=== PATIENT | male | born 1960 | race Caucasian/White ===

== ENCOUNTER 2019-04-13 00:58 | Inpatient (IN) | payer MEDICAID, SELFPAY ==
[2019-04-13] VITALS (24 sets, daily range): BP systolic 101–147; BP diastolic 53–89; PULSE 79–182; RESP 16–24; TEMP 36.7–37.3; O2SAT 96–98; BMI 35.7; BMI 33.8; BMI 33.9
--- NOTE | 2019-04-13 01:18 | RAD_ITS ---
STUDY: X-RAY CHEST REASON FOR EXAM: Male, 58 years old. Chest pain TECHNIQUE: AP portable COMPARISON: None. FINDINGS: The lungs are clear and expanded. There is no demonstrated pleural abnormality. Normal size heart. Normal mediastinum and daina. Normal visualized pulmonary arteries. Normal visualized aortic arch and descending thoracic aorta. Normal visualized thoracic spine. Normal visualized ribs, clavicles, and shoulders. There is no demonstrated abnormality of the visualized soft tissue structures of the upper abdomen. RAD/Chest 1 View (Portable) IMPRESSION: Negative x-ray examination of the chest. Electronically Signed: Tai Moody, at 1:48 EDT Tel , Service support ,
--- NOTE | 2019-04-13 01:18 | EKG12_ITS ---
Test Reason : SYNCOPE Blood Pressure : / mmHG Vent. Rate : 110 BPM Atrial Rate : 108 BPM P-R Int : 000 ms QRS Dur : 102 ms QT Int : 334 ms P-R-T Axes : 000 034 050 degrees QTc Int : 452 ms Atrial fibrillation with rapid ventricular response Abnormal ECG Confirmed by MILO LIANG, LASHAUN ([id number]), city editor RON FRANCO ([id number]) on 04/15/2019 1:08:15 PM Referred By: Eyad Warner Confirmed By:LASHAUN PEDRAZA MD
--- NOTE | 2019-04-13 01:18 | ED.VIS.CHEST ---
History of Present Illness Chief Complaint: Syncope Informant: Patient, Spouse/S.O. Onset: Today Activity at onset: Light Activity - walking in camper Narrative: Patient had 3 episodes today, 2 of which were witnessed by his significant other as full syncopal episodes of a relatively brief, started after getting up and walking in the camper. Patient felt lightheaded prior to each 1. The first one sounded like a near syncopal episode. Patient states he went down to his knees because he felt lightheaded. No injuries. He had chest discomfort for 20 minutes in the left side of his chest, aching, earlier today, took a nitroglycerin and states it did not do anything, but the discomfort spontaneously resolved little later. He has a history of chronic A. fib, he had an ablation and then a Holter monitor for 1-2 days around 2 months ago that was negative, he has never felt when he is in atrial fibrillation in the past, EMS EKG shows A. fib prior to arrival today in the ER. He states he is having no chest discomfort now. He had no exertional chest discomfort earlier, it started while he was at rest. He states for the last 2 to 3 days he has had a nonproductive cough, occasional shortness of breath, and diarrhea around 5 times a day, watery, nonbloody. He is on Eliquis and Plavix he has a history of cardiac stents. 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 - Past Medical History (1) CAD (coronary artery disease), [place] coronary artery Status: Chronic (2) HTN (hypertension) Status: Chronic (3) Hyperlipidemia Status: Chronic (4) Type 2 diabetes mellitus Status: Chronic (5) Ankylosing spondylitis Status: Chronic (6) Chronic atrial fibrillation Status: Chronic Past Medical History - Allergies and Home Meds Allergies/Adverse Reactions: Allergies No Known Allergies Allergy (Verified 04/13/19 01:08) Primary Care Physician: [facility] Doctor,Out of [Primary Care Provider] - Surgical History: angioplasty - coronary stent, - - cardiac ablation Lives: Spouse/ Significant Other Smoking Status: Never smoker Drugs: None Review of Systems General: Reports: Malaise. Denies: Chills, Fever, Sweats Eyes: Denies: Visual changes - bilaterally, Diplopia ENT: Denies: Rhinorrhea, Sore throat Cardiovascular: Denies: Chest pain, Palpitations, Heart racing Respiratory: Reports: Dyspnea, Cough. Denies: Dyspnea on exertion Gastrointestinal: Reports: Abdominal pain, Diarrhea. Denies: Nausea, Vomiting, Melena, Hematochezia Genitourinary: Denies: Dysuria, Hematuria, Frequency Musculoskeletal: Reports: Back pain - chronic, unchanged. Denies: Swelling, Extremity Pain Skin: Denies: Rash, Wounds Neurological: Denies: Headache, Weakness, Numbness Physical Exam Vital Signs/Narrative: Vital Signs Temp Pulse Resp BP Pulse Ox 04/13/19 01:07 138 H 22 H 98 04/13/19 01:01 99.1 F 106 H 19 H 119/67 96 Inital Vital Signs reviewed: Yes General: Well nourished, Well developed, No Acute Distress Head: Normocephalic, Atraumatic Eyes: Perrl, EOMI ENT: Moist mucous membranes, No rhinorrhea Neck: Supple, Nontender, No lymphadenopathy, No JVD Cardiovascular: No murmurs, Irregular, Tachycardia Respiratory: No distress, CTA bilaterally, Chest nontender Abdomen: Soft, Nontender, Nondistended, Normal bowel sounds Back: Nontender, Normal Inspection Extremities: Nontender, No edema. Negative for: Calf Tenderness Skin: Normal color, No rash, No Trauma Neurological: Alert, Oriented x3, Cranial nerves II-XII grossly intact, Normal Strength, Normal Sensation Psychological: Normal affect, Normal Mood Diagnostic/Tx/Re-eval Impressions Chest X-Ray 04/13/19 01:18 IMPRESSION: Negative x-ray examination of the chest. Electronically Signed: Tai Moody, at 1:48 EDT Tel , Service support , 04/13/19 01:18 Chest 1 View (Portable) [RAD] Stat Laboratory Results 04/13/19 04/13/19 01:10 01:10 WBC 8.4 RBC 5.73 Hgb 14.2 Hct 44.3 MCV 77.3 L MCH 24.8 L MCHC 32.1 RDW 17.0 H RDW Differential 47.6 H Plt Count 239 MPV 10.5 Immature Gran % (Auto) 0.200 Neut % (Auto) 69.5 Lymph % (Auto) 17.2 L [place] % (Auto) 12.4 H Eos % (Auto) 0.5 Baso % (Auto) 0.2 Absolute Neuts (auto) 5.8 Absolute Lymphs (auto) 1.44 Total Counted Not Reportable Sodium 135 L Potassium 3.3 L Chloride 106 Carbon Dioxide 21.0 Anion Gap 8 BUN 19 H Creatinine 1.02 Estim Creat Clear Calc 83.05 Est GFR (MDRD) Af Amer 96 Est GFR (MDRD) Non-Af 79 BUN/Creatinine Ratio 18.6 Glucose 160 H Calcium 8.6 Troponin I 0.349 H - Rhythm Strip Rhythm Strip: A-fib Rate: 120 Ectopy: PVC(s) - EKG Initial EKG Interpretation: No Acute Injury Pattern, Atrial Fibrillation Treatment: - - ASA held due to already took Plavix < 24h and anticoagulated Repeat Eval: Pain Free RUTHY Risk: >/= 3RF, H/O CAD, ASA within 7 days - (Plavix), Elevated Enzymes Score: 4 - Medical Decision Making Work-up shows an elevated troponin, prerenal azotemia consistent with mild dehydration, mild hypokalemia likely due to diarrhea/loss. On reevaluation after IV fluids and Cardizem, he is feeling better and still is without any chest discomfort at this time. He is without dyspnea now as well. His heart rate is in the low 100s. I did not give him much Cardizem due to his multiple syncopal events recently, and if he was significantly dehydrated I did not want to drop his blood pressure. With what we gave him, his blood pressure remained stable, 139/100 at last reading. As discussed with the patient I recommend admission to the hospital for further monitoring and testing with cardiac consult. His EKG shows no acute injury pattern, differential for his elevated troponin includes evolving or recent non-STEMI versus nonischemic rate related troponin leak. Lovenox/heparin held due to anticoagulation on Eliquis. Aspirin held due to anticoagulated as well, he had his Plavix. ED Disposition - Plan for ED Patient: Disposition: Acute Care Hospital [facility] Diagnosis: Chest pain, Elevated troponin, Dehydration, Syncope, Atrial fibrillation with rapid ventricular response Referrals: [facility] Doctor,Out of [Primary Care Provider] -
[2019-04-13] MEDS: 0.9% Normal Saline 1,000 ML 1000 ML IV (01:21)
--- NOTE | 2019-04-13 01:21 | ED.RN ---
NO OLD EKGS IN MUSE
[2019-04-13 01:26] LABS: Absolute Lymphocyte Count 1.44 X10^3/ul (0.83-4.51); Absolute Neutrophil Count 5.8 X10^3/uL (2.0-7.7); Basophil# 0.02 X10^3/uL; Basophil% 0.2 % (0-1); Eosinophil# 0.04 X10^3/uL; Eosinophils% 0.5 % (0-5); Hematocrit 44.3 % (40-54); Hemoglobin 14.2 g/dl (13.0-16.5); Lymphocyte # 1.44 X10^3/ul (4.0); Lymphocyte % 17.2 % (19-41); Mean Corp Hgb Conc 32.1 g/gl (32-36); Mean Corpuscular Hgb 24.8 pg (27.0-32.0); Mean Corpuscular Volume 77.3 fL (80-94); Mean Platelet Vol. 10.5 fl (6.2-12.0); Monocyte# 1.04 X10^3/uL; Monocyte% 12.4 % (0-10); Neutrophil # 5.82 X10^3/uL (2.7-7.7); Neutrophil % 69.5 % (47-70); Platelet Count 239 K/mm3 (150-450); RBC Distribution Width SD 47.6 fl (35.1-43.9); Red Blood Count 5.73 M/mm3 (4.6-6.2); White Blood Count 8.4 K/mm3 (4.4-11.0)
[2019-04-13] MEDS: dilTIAZem 25 MG/5 ML Vial 10 MG IV BOLUS (01:27)
[2019-04-13 01:30] LABS: POSITIVE COUNT NO; POSITIVE DIFFERENTIAL NO; POSITIVE MORPHOLOGY NO
[2019-04-13 01:39] LABS: Anion Gap 8 (5-15); BUN 19 mg/dL (7-18); BUN/Creat Ratio 18.6 RATIO (10-20); Calcium,Total 8.6 mg/dL (8.5-10.1); Chloride 106 mmol/L (98-107); Creatinine, Serum 1.02 mg/dL (0.70-1.30); EST Glomerular Filtration Rate 79 mL/min (>60); Est Glom Filt Rate - Afr Amer 96 mL/min (>60); Estimated Creatinine Clearance 83.05 ml/min; Glucose 160 mg/dL (74-106); Potassium 3.3 mmol/L (3.5-5.1); Sodium Level 135 mmol/L (136-145)
--- NOTE | 2019-04-13 02:53 | HP.PCM_ITS ---
Problem List (1) Atrial fibrillation with rapid ventricular response Status: Acute (2) Syncope and collapse Status: Acute (3) Elevated troponin Status: Acute (4) Ankylosing spondylitis Status: Chronic History of Present Illness Date of Admission: 04/13/19 Chief Complaint: syncope The patient is a 58 year old M with a significant history of ankylosing spondylitis; atrial fibrillation status post ablation; CAD with a stent; Type 2 diabetes who presented to the emergency department with 2 episodes of syncope and another episode where he had presyncope. All the episode happened while patient was walking in his home. During the syncopal episode he was shaking and staring. He knelt down with his syncopal episodes. His symptoms occurred few hours before presentation. Also, several hours before the syncopal and presyncopal episode he had a transient episode of left sided chest pain that lasted 2 to 3 minutes. His chest pain was aching. It occurred while he was sitting. His chest pain was non-radiating. There was no aggravating or ameliorating factor to the chest pain. Although patient took nitroglycerin he said that his chest pain was markedly improving before he even took the nitroglycerin. He thinks that the nitroglycerin did not help him and his only give me a headache. The last 3 days the patient has been lethargic; neurologic; nauseous; he has runny nose; cough; diarrhea with loose stools; diaphoresis and rigors. At the emergency department patient was noted to have elevated in troponin; low potassium; mildly low sodium and a slight elevation in BUN. Patient was given a bolus of normal saline at the ED. Further he was found to be in A. fib with ventricular rates around 110s and was given a bolus of Cardizem. In December 2017 patient had a first episode of A. fib and he passed out with it. Follow-up Holter monitor showed that he was in ventricular fibrillation and he received ablation. Follow-up Holter monitor after the ablation did not show A. fib but it showed extra beats. Much of the history was provided by patient's . Past Medical History Past Medical History (Chronic Problems): Chronic Problems CAD (coronary artery disease), [place] coronary artery (Chronic) HTN (hypertension) (Chronic) Hyperlipidemia (Chronic) Type 2 diabetes mellitus (Chronic) Ankylosing spondylitis (Chronic) Chronic atrial fibrillation (Chronic) Allergies No Known Allergies Allergy (Verified 04/13/19 01:08) Home Medications: Ambulatory Orders Medication Instructions Recorded Apixaban [Eliquis] 5 mg PO BID 04/13/19 Clopidogrel Bisulfate [Plavix] 75 mg PO DAILY 04/13/19 Ertugliflozin Pidolate [Steglatro] 5 mg PO DAILY 04/13/19 Etanercept [Enbrel] 50 mg SQ QWEEK 04/13/19 Gabapentin 800 mg PO BID 04/13/19 Glimepiride [Amaryl] 4 mg PO BID 04/13/19 Lisinopril [Prinivil] 10 mg PO DAILY 04/13/19 Magnesium Oxide 400 400 mg PO DAILY 04/13/19 Metoprolol Tartrate [Lopressor] 100 mg PO BID 04/13/19 Pantoprazole Sodium [Protonix] 40 mg PO DAILY 04/13/19 Pioglitazone [Actos] 45 mg PO DAILY 04/13/19 Simvastatin 20 mg PO DAILY 04/13/19 Sitagliptin Phosphate [Januvia] 50 mg PO DAILY 04/13/19 traZODone [Desyrel] 100 mg PO QHS 04/13/19 Surgical History: angioplasty - coronary stent, appendectomy, - - cardiac ablation Lives: Spouse/ Significant Other Smoking Status: Never smoker Alcohol: Occasional - *Family History Maternal History Items: Diabetes Paternal History Items: Cancer - His father had lung cancer. Patient reported his father worked in [employer] Review of Systems Constitutional: Reports: Chills. Denies: Fever, Weight Change HEENT: Denies: Head Aches, Sinus Congestion, Sinus Drainage Cardiovascular: Reports: Chest Pain, Syncope. Denies: Palpitations Respiratory: Reports: Cough, Shortness of Breath Gastrointestinal: Reports: Diarrhea, Nausea. Denies: Abdominal Pain, Vomiting Genitourinary: Denies: Dysuria Musculoskeletal: Denies: Joint Pain, Joint Tenderness Skin: Denies: Rash, Wounds Neurological: Denies: Numbness, Tingling, Focal weakness Psychiatric: Denies: Anxiety, Depression, Homicidal Ideations, Suicidal Ideations Hematologic/ Lymphatic: Denies: Easy Bruising, Easy Bleeding VTE Information - Inpt Only VTE Present on Admission: No VTE Mechan Device Prophylaxis: None VTE Pharm Prophylaxis ordered?: No Reason prophylaxis not ordered:: Treatment Not Indicated - On Eliquis for A. fib; continued Patient Problems: Active and Suspected Problems Chest pain (Acute) Elevated troponin (Acute) Dehydration (Acute) Syncope (Acute) Atrial fibrillation with rapid ventricular response (Acute) Syncope and collapse (Acute) - Physical Exam General: Alert, Oriented x3, Cooperative HEENT: Atraumatic, PERRLA, EOMI, Normocephalic Neck: Supple, No JVD, Negative Carotid Bruits Lungs: Clear to auscultation, Normal air movement Cardiovascular: No murmurs, Irregular Rate Abdomen: Bowel Sounds Present, Soft, Non Tender Extremities: No edema, Capillary Refill Less than 3 Seconds Skin: No rashes, No breakdown Musculoskeletal: No Tenderness to Palpation of Joints or Extremities Neurological: Cranial nerves II-XII grossly intact Psych/Mental Status: Normal Affect, Appropriate Vital Signs Temp Pulse Resp BP Pulse Ox 99.1 F 104 H 24 H 119/67 96 04/13/19 01:01 04/13/19 02:52 04/13/19 02:52 04/13/19 02:52 04/13/19 02:52 Oxygen Delivery Method Room Air Weight: 116.2 kg Body Mass Index (BMI) 35.7 Laboratory Tests Past 24 Hrs 04/13/19 04/13/19 01:10 01:10 WBC 8.4 RBC 5.73 Hgb 14.2 Hct 44.3 MCV 77.3 L MCH 24.8 L MCHC 32.1 RDW 17.0 H RDW Differential 47.6 H Plt Count 239 MPV 10.5 Immature Gran % (Auto) 0.200 Neut % (Auto) 69.5 Lymph % (Auto) 17.2 L [place] % (Auto) 12.4 H Eos % (Auto) 0.5 Baso % (Auto) 0.2 Absolute Neuts (auto) 5.8 Absolute Lymphs (auto) 1.44 Total Counted Not Reportable Sodium 135 L Potassium 3.3 L Chloride 106 Carbon Dioxide 21.0 Anion Gap 8 BUN 19 H Creatinine 1.02 Estim Creat Clear Calc 83.05 Est GFR (MDRD) Af Amer 96 Est GFR (MDRD) Non-Af 79 BUN/Creatinine Ratio 18.6 Glucose 160 H Calcium 8.6 Troponin I 0.349 H Assessment/Plan All Active Problems Chest pain (Acute) Elevated troponin (Acute) Dehydration (Acute) Syncope (Acute) Atrial fibrillation with rapid ventricular response (Acute) Syncope and collapse (Acute) The patient is a 58 year old M with a significant history of collagenous colitis; atrial fibrillation status post ablation; CAD with a stent: Type 2 diabetes who presented to the emergency department with multiple episodes of syncope/presyncope; chest pain and found to have elevated in troponin and also was in A. fib with RVR. Syncope with collapse Because his previous history of syncope occurred in association with A. fib it is possible that his current A. fib is also associated with his syncope. We will check orthostatic vitals. Patient received IV fluid bolus in the emergency department. We will continue patient on gentle IV hydration. Also patient reports a constellation of symptoms that may be attributed to viral infection. Will order respiratory pathogen panel and stool studies. We will get an echocardiogram and consult cardiology Atrial fibrillation with RVR Patient was found to be in A. fib with rates in the 110s at the emergency department. He received Cardizem bolus. Will order as needed metoprolol IV. Home metoprolol continued. Get TSH and magnesium level and replace potassium. Home magnesium oxide held because of diarrhea. Echocardiogram as above Eliquis continued Probable acute viral syndrome Patient has constellation of symptoms that may be attributed to viral infection. The symptoms include chest pain; nausea; chills; shortness of breath; and diarrhea. Will order respiratory pathogen panel and stool studies. Chest pain with elevated troponin Etiology could be from A. fib or coronary disease. Trend troponin. Nitroglycerin sublingual and morphine as needed ordered. Eliquis and Plavix continued. Because he is already on Eliquis and Plavix aspirin was not given. Home statin was continued. Hypertension On presentation his blood pressure was within goal. Metoprolol and lisinopril continued. Trend blood pressure and adjust blood pressure medication. History of CAD status post stent Last 2 stents was placed around April 2017. Management as above Simvastatin continued Lisinopril continued Metoprolol continued Ankylosing spondylitis Etanercept continued Diabetes mellitus: On presentation blood glucose was within goal. Ertugliflozin; glimepiride; sitagliptin and pioglitazone continued. Correction scale insulin added. Insomnia/depression: Trazodone ordered GERD: Protonix ordered DVT prophylaxis not indicated since patient is on Eliquis for A. fib. Code Visit Inpatient E&M: 29765 Init Hosp L3
--- NOTE | 2019-04-13 04:05 | ECHOCS_ITS ---
Reason For Study: AFIB.FLUTTER Procedure This was a 2D Doppler, Color Flow transthoracic echocardiogram. The study was technically difficult. Due to body habitus. Contrast injection was performed. Exam performed portable in patient room. Left Ventricle Normal LV size. Left ventricular systolic function is normal. The estimated ejection fraction is 55 %. Unable to assess diastolic dysfunction. No regional wall motion abnormalities noted. Right Ventricle Normal RV size. Normal systolic function. Atria The left atrium is mildly enlarged. Normal right atrium. No doppler evidence for ASD. Mitral Valve There is no mitral annular calcification. Normal mitral valve. Trivial mitral valve insufficiency. Tricuspid Valve Normal tricuspid valve. Trivial tricuspid valve insufficiency. Right ventricular systolic pressure estimated to be 25 mmHg. Aortic Valve Trisinus/trileaflet aortic valve. Normal aortic valve. Pulmonic Valve The pulmonic valve is not well visualized. Trivial pulmonic valve insufficiency. Great Vessels Normal sized aortic root. Pericardium/Pleural No pericardial effusion. Medication Diluted definity 3.0ml given slow IV push to enhance endocardial definition. MMode/2D Measurements & Calculations LVIDd: 5.2 cm IVSd: 1.6 cm Ao root diam: 3.5 cm LVIDs: 3.7 cm LVPWd: 1.4 cm RVDd: 3.5 cm FS: 28.3 % LAV(MOD-bp): 71.1 ml LA A4 area: 22.6 cm2 LA dimension(2D): 4.1 cm LAV(MOD-bp) Indexed: 31.1 ml/m2 LAV(MOD-sp2): 58.7 ml LAV(MOD-sp4): 75.8 ml RA A4 area: 18.8 cm2 Doppler Measurements & Calculations MV E max hellen: 85.9 cm/sec Ao V2 max: 118.2 cm/sec LV V1 max: 88.0 cm/sec Ao max P.6 mmHg LV V1 max P.1 mmHg PA V2 max: 93.9 cm/sec TR max hellen: 236.0 cm/sec TR max P.3 mmHg Interpretation Summary The study was technically difficult. Contrast injection was performed. Left ventricular systolic function is normal. The estimated ejection fraction is 55 %. The left atrium is mildly enlarged. Trivial mitral valve insufficiency. Trivial tricuspid valve insufficiency. Trivial pulmonic valve insufficiency. Right ventricular systolic pressure estimated to be 25 mmHg. Unable to assess diastolic dysfunction. Ordering Physician: Eyad Warner Referring Physician: OTD Performed By: Chantelle Yeboah RDCS, RVT
--- NOTE | 2019-04-13 04:49 | EKG12_ITS ---
Test Reason : CP ADMIT Blood Pressure : / mmHG Vent. Rate : 120 BPM Atrial Rate : 208 BPM P-R Int : 000 ms QRS Dur : 102 ms QT Int : 286 ms P-R-T Axes : 000 034 030 degrees QTc Int : 404 ms Atrial fibrillation with rapid ventricular response with premature ventricular or aberrantly conducte d complexes Abnormal ECG Confirmed by MILO LIANG, LASHAUN ([id number]), video effects editor RODERICK ARREGUIN ([id number]) on 04/18/2019 1:16:40 PM Referred By: Eyad Warner Confirmed By:LASHAUN PEDRAZA MD
[2019-04-13] MEDS: 0.9% Normal Saline 1,000 ML 100 ML IV (04:58)
[2019-04-13 08:28] LABS: Cholesterol 86 mg/dL (200); High Density Lipoprotein 29 mg/dL; Magnesium 1.9 mg/dL (1.6-2.6); Thyroid Stim Hormone (TSH) 1.59 uIU/mL (0.358-3.74); Triglycerides 94 mg/dL; Very Low Density Lipoprotein 19 mg/dL (5-40)
--- NOTE | 2019-04-13 09:01 | PCM.HOSP.N ---
Hospitalist Note This is a 58-year-old gentleman who lives in [place] but was having Near posterior was admitted to ER for 2 episodes of syncope along with A. fib with RVR and chest pressure. The patient has history of coronary artery disease with 80 stents, first one 10 years ago and ankylosing spondylitis on Enbrel. He had first a stent when found abnormal on the stress test. He also found A. fib with RVR last year and letter on Holter monitor on ventricular fibrillation and subsequently had atrial ablation by Dr. Painter, research geneticist in [facility]. 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 Dyer. Patient had mild chest pressure about 2/10 in afternoon yesterday. After that, he felt little dizzy and sudden syncope, 2 successive episodes. His further described that his eyes were wide, pale and grayish look, sweating and staring not responding. He denies being obviously short of breath. Patient further said he has flulike symptoms including fever, cough, nasal congestion for 3 days. Found to have parainfluenza 3 virus in respiratory panel. In ED, his heart rate was 138/min, BP 120/67, RR 19 -24 or hypoxia. The patient also had mildly elevated troponin, hypokalemia, mild hyponatremia with slight elevation in BUN. Patient received normal sign bolus in ED. EKG showed A. fib with RVR at 110 and received bolus of Cardizem. Chest x-ray reported negative. On exam
--- NOTE | 2019-04-13 09:12 | PCM.PN.HOSP ---
Patient Problems: Active and Suspected Problems Chest pain (Acute) Elevated troponin (Acute) Dehydration (Acute) Syncope (Acute) Atrial fibrillation with rapid ventricular response (Acute) Syncope and collapse (Acute) Subjective: This is a 58-year-old gentleman who lives in [facility] was [place] was admitted to ER for 2 episodes of syncope along with A. fib with RVR and chest pressure. The patient has history of coronary artery disease with 80 stents, first one 10 years ago and ankylosing spondylitis on Enbrel. He had first a stent when found abnormal on the stress test. He also found A. fib with RVR last year and letter on Holter monitor on ventricular fibrillation and subsequently had atrial ablation by Dr. Painter, assembler equipment in [facility]. His cardiac care is mainly in the [facility], the buckler and lacer Dr. Dyer. Patient had mild chest pressure about 2/10 in afternoon yesterday. After that, he felt little dizzy and sudden syncope, 2 successive episodes. His further described that his eyes were wide, pale and grayish look, sweating and staring not responding. He denies being obviously short of breath. Patient further said he has flulike symptoms including fever, cough, nasal congestion for 3 days. Found to have parainfluenza 3 virus in respiratory panel. In ED, his heart rate was 138/min, BP 120/67, RR 19 -24 or hypoxia. The patient also had mildly elevated troponin, hypokalemia, mild hyponatremia with slight elevation in BUN. Patient received normal sign bolus in ED. EKG showed A. fib with RVR at 110 and received bolus of Cardizem. Chest x-ray reported negative Vitals/I&O's: Vital Signs Temp Pulse Resp BP Pulse Ox 98.7 F 79 16 135/78 H 96 04/13/19 04:11 04/13/19 08:08 04/13/19 04:11 04/13/19 08:08 04/13/19 07:31 Oxygen Delivery Method Room Air Weight: 242 lb 15.19 oz Body Mass Index (BMI) 33.8 Orthostatic Vital Signs Start: 04/13/19 08:07 Freq: q24h Status: Active Protocol: Activity Type Activity Date Activity User E-Sign Co-Sign Detail Recorded Client Recorded Date Recorded By Document 04/13/19 08:08 SYLVIA [id number] 04/13/19 08:09 SYLVIA 04/13/19 08:08 Orthostatic Vitals Standing -Blood Pressure (90/60-120/80 mm Hg) 147/89 H -Extremity Use Right Arm -Pulse Rate (60-100 beats/min) 100 Sitting -Blood Pressure (90/60-120/80 mm Hg) 138/79 H -Extremity Use Right Arm -Pulse Rate (60-100 beats/min) 89 Lying -Blood Pressure (90/60-120/80 mm Hg) 135/78 H -Extremity Use Right Arm -Pulse Rate (60-100 beats/min) 79 Intake and Output for Last 24 Hours 04/11/19 04/12/19 04/13/19 23:59 23:59 23:59 Intake Total 222.4 / 222.4 Balance 222.4 / 222.4 General: Alert, Oriented x3, Cooperative HEENT: Atraumatic, PERRLA, EOMI, Normocephalic Neck: Supple, No JVD, Negative Carotid Bruits Lungs: Clear to auscultation, Normal air movement, No rhonchi, No wheeze, No rales, Diminished - Air entry is diminished bilaterally in both lung bases Cardiovascular: Regular rate, Normal S1, Normal S2, Irregular Rate Abdomen: Bowel Sounds Present, Soft, Non Tender, Non-Distended Extremities: Capillary Refill Less than 3 Seconds, Edema Skin: No rashes, No breakdown Musculoskeletal: No Tenderness to Palpation of Joints or Extremities, Arthritic Changes Lymphatic: No Cervical, Supraclavicular, or Inguinal Adenopathy Neurological: Cranial nerves II-XII grossly intact, Deep Tendon Reflexes 2+/4 and Symmetrical, Neuro grossly intact, Motor Exam 5/5 strength throughout Psych/Mental Status: Normal Affect, Appropriate Microbiology Past 72 Hours 04/13/19 05:15 Mucosa - Nose Respiratory Panel (PCR) - Final Parainfluenza 3 Laboratory Results 04/13/19 01:10: WBC 8.4, RBC 5.73, Hgb 14.2, Hct 44.3, MCV 77.3 L, MCH 24.8 L, MCHC 32.1, RDW 17.0 H, RDW Differential 47.6 H, Plt Count 239, MPV 10.5, Immature Gran % (Auto) 0.200, Neut % (Auto) 69.5, Lymph % (Auto) 17.2 L, Tens[place] % (Auto) 12.4 H, Eos % (Auto) 0.5, Baso % (Auto) 0.2, Absolute Neuts (auto) 5.8, Absolute Lymphs (auto) 1.44, Total Counted Not Reportable 04/13/19 01:10: Sodium 135 L, Potassium 3.3 L, Chloride 106, Carbon Dioxide 21.0, Anion Gap 8, BUN 19 H, Creatinine 1.02, Estim Creat Clear Calc 83.05, Est GFR (MDRD) Af Amer 96, Est GFR (MDRD) Non-Af 79, BUN/Creatinine Ratio 18.6, Glucose 160 H, Calcium 8.6, Troponin I 0.349 H 04/13/19 04:26: Troponin I 0.269 H 04/13/19 07:35: Magnesium Cancelled, Triglycerides Cancelled, Cholesterol Cancelled, LDL Cholesterol Cancelled, VLDL Cholesterol Cancelled, HDL Cholesterol Cancelled, TSH Cancelled 04/13/19 07:35: Magnesium 1.9, Troponin I 0.222 H, Triglycerides 94, Cholesterol 86, LDL Cholesterol 38, VLDL Cholesterol 19, HDL Cholesterol 29 L, TSH 1.59 Current Medications Acetaminophen (Tylenol) 650 mg PO Q6H PRN PRN PRN Reason: Mild pain 1-3/Temp > 100.7 F Apixaban (Eliquis) 5 mg PO BID [facility] Atorvastatin Calcium (Lipitor) 10 mg PO QHS [facility] Clopidogrel Bisulfate (Plavix) 75 mg PO DAILY [facility] Dextrose (D50w Syringe) 0 gm IV X1 PRN; Protocol PRN Reason: Hypoglycemia Etanercept (Enbrel) 50 mg SQ QWEEK [facility] Gabapentin (Neurontin) 800 mg PO BID [facility] Glimepiride (Amaryl) 4 mg PO BIDCM [facility] Glucagon () 1 mg IM .X1 PRN PRN Reason: Hypoglycemia Sodium Chloride () 1,000 mls @ 100 mls/hr IV .Q10H [facility] Stop: 04/13/19 14:04 Last Admin: 04/13/19 04:58 Dose: 100 mls/hr Documented by: Sodium Chloride () 250 mls @ 15 mls/hr IV .[id number] PRN PRN Reason: SALINE FLUSH Insulin Human Lispro (Humalog Kwikpen (Bkc)) 0 unit SC ACHS [facility]; Protocol Last Admin: 04/13/19 06:54 Dose: Not Given Documented by: Linagliptin (Tradjenta) 5 mg PO DAILY [facility] Lisinopril (Zestril) 10 mg PO DAILY [facility] Metoprolol Tartrate (Lopressor (Beta Khai)) 100 mg PO BID [facility] Metoprolol Tartrate (Lopressor (Beta Khai)) 5 mg IV Q5M PRN PRN Reason: HR > 120 Morphine Sulfate () 2 mg IV Q4H PRN PRN PRN Reason: PAIN Nitroglycerin (Nitrostat) 0.4 mg SUBLINGUAL Q5M PRN PRN Reason: CARDIAC/CHEST PAIN Nutritional Formula (Lactose Free) (Glucerna Shake) 120 ml PO 4X/DAY [facility] Ondansetron HCl (Zofran) 4 mg IV Q8H PRN PRN PRN Reason: NAUSEA/VOMITING Pantoprazole Sodium (Protonix) 40 mg PO DAILY [facility] Pioglitazone HCl (Actos) 45 mg PO DAILY [facility] Sodium Chloride () 10 - 40 ml IV UD PRN PRN Reason: SALINE FLUSH Trazodone HCl (Desyrel) 100 mg PO QHS [facility] Medical Necessity - Tobacco Use Smoking Status: Never smoker Tobacco Use: Non-smoker Assessment/Plan All Active Problems Chest pain (Acute) Elevated troponin (Acute) Dehydration (Acute) Syncope (Acute) Atrial fibrillation with rapid ventricular response (Acute) Syncope and collapse (Acute) This is a 58-year-old gentleman who is being admitted with 2 episodes of syncope along with A. fib with RVR and chest pressure. The patient has history of coronary artery disease with 8 stents, first one 10 years ago and ankylosing spondylitis on Enbrel. He had first a stent when found abnormal on the stress test. He also found A. fib with RVR last year and letter on Holter monitor on ventricular fibrillation and subsequently had atrial ablation by Dr. Painter, assembler equipment in [facility]. His cardiac care is mainly in the [facility], the buckler and lacer Dr. Dyer. 1. Syncope with collapse possible related to A. fib with RVR/parainfluenza bronchitis: Orthostatic blood pressure does not show change in blood pressure but heart rate pent-up from 79 on lying position, 89 on sitting and 100 on standing. Medical record of previous echo, stress and EP study to be obtained from ?[facility], [place]. Echo is ordered. Requested cardiology consult. 2. Chest pain with elevated troponin possible allergic to demand ischemia/A. fib with RVR with history of coronary artery disease status post 8 stents: Currently heart rate is controlled on 100 mg metoprolol twice daily with metoprolol 5 mg IV intermittently. Serial troponin shows mild elevation, from 0.349, 0.27 and last one 0.22, decreasing trend. Cardiac medications lisinopril, simvastatin continued. 3. Arrhythmia: A. fib with RVR: Patient still gets intermittent tachycardia. TSH 1.59. Magnesium 1.9. K3.3 getting replaced. We will repeat BMP. 4. Parainfluenza 3 viral bronchitis: Symptomatic treatment with hydration. 5. Diabetes mellitus type 2: Blood glucose is controlled. Home oral medications continued. Accu-Chek before meals and at bedtime and cover with Humalog sliding scale. 6. Ankylosing spondylitis Etanercept continued 7. Anxiety depression, insomnia and GERD: Home medications trazodone continued. On Protonix. DVT prophylaxis: On Eliquis Microbiology Past 72 Hours 04/13/19 05:15 Mucosa - Nose Respiratory Panel (PCR) - Final Parainfluenza 3 Laboratory Results 04/13/19 01:10: WBC 8.4, RBC 5.73, Hgb 14.2, Hct 44.3, MCV 77.3 L, MCH 24.8 L, MCHC 32.1, RDW 17.0 H, RDW Differential 47.6 H, Plt Count 239, MPV 10.5, Immature Gran % (Auto) 0.200, Neut % (Auto) 69.5, Lymph % (Auto) 17.2 L, Tensas % (Auto) 12.4 H, Eos % (Auto) 0.5, Baso % (Auto) 0.2, Absolute Neuts (auto) 5.8, Absolute Lymphs (auto) 1.44, Total Counted Not Reportable 04/13/19 01:10: Sodium 135 L, Potassium 3.3 L, Chloride 106, Carbon Dioxide 21.0, Anion Gap 8, BUN 19 H, Creatinine 1.02, Estim Creat Clear Calc 83.05, Est GFR (MDRD) Af Amer 96, Est GFR (MDRD) Non-Af 79, BUN/Creatinine Ratio 18.6, Glucose 160 H, Calcium 8.6, Troponin I 0.349 H 04/13/19 04:26: Troponin I 0.269 H 04/13/19 07:35: Magnesium 1.9, Troponin I 0.222 H, Triglycerides 94, Cholesterol 86, LDL Cholesterol 38, VLDL Cholesterol 19, HDL Cholesterol 29 L, TSH 1.59 Clinical Impression(s) from Imaging Studies Chest X-Ray 04/13/19 01:18 IMPRESSION: Negative x-ray examination of the chest. Active Medications Acetaminophen (Tylenol) 650 mg PO Q6H PRN PRN PRN Reason: Mild pain 1-3/Temp > 100.7 F Apixaban (Eliquis) 5 mg PO BID [facility] Atorvastatin Calcium (Lipitor) 10 mg PO QHS [facility] Clopidogrel Bisulfate (Plavix) 75 mg PO DAILY [facility] Dextrose (D50w Syringe) 0 gm IV X1 PRN; Protocol PRN Reason: Hypoglycemia Etanercept (Enbrel) 50 mg SQ QWEEK [facility] Gabapentin (Neurontin) 800 mg PO BID [facility] Glucagon () 1 mg IM .X1 PRN PRN Reason: Hypoglycemia Sodium Chloride () 1,000 mls @ 100 mls/hr IV .Q10H [facility] Stop: 04/13/19 14:04 Last Admin: 04/13/19 04:58 Dose: 100 mls/hr Documented by: Sodium Chloride () 250 mls @ 15 mls/hr IV .[id number] PRN PRN Reason: SALINE FLUSH Insulin Human Lispro (Humalog Kwikpen (Bkc)) 0 unit SC ACHS [facility]; Protocol Last Admin: 04/13/19 06:54 Dose: Not Given Documented by: Linagliptin (Tradjenta) 5 mg PO DAILY [facility] Lisinopril (Zestril) 10 mg PO DAILY [facility] Metoprolol Tartrate (Lopressor (Beta Khai)) 100 mg PO BID [facility] Metoprolol Tartrate (Lopressor (Beta Khai)) 5 mg IV Q5M PRN PRN Reason: HR > 120 Morphine Sulfate () 2 mg IV Q4H PRN PRN PRN Reason: PAIN Nitroglycerin (Nitrostat) 0.4 mg SUBLINGUAL Q5M PRN PRN Reason: CARDIAC/CHEST PAIN Nutritional Formula (Lactose Free) (Glucerna Shake) 120 ml PO 4X/DAY [facility] Ondansetron HCl (Zofran) 4 mg IV Q8H PRN PRN PRN Reason: NAUSEA/VOMITING Pantoprazole Sodium (Protonix) 40 mg PO DAILY [facility] Pioglitazone HCl (Actos) 45 mg PO DAILY [facility] Sodium Chloride () 10 - 40 ml IV UD PRN PRN Reason: SALINE FLUSH Trazodone HCl (Desyrel) 100 mg PO QHS [facility] Code Visit Inpatient E&M: 86147 Subs Hosp L1
[2019-04-13] MEDS: Glimepiride 4 MG Tablet PO ×2 (10:27→16:13)
[2019-04-13] MEDS: Pantoprazole Sodium 40 MG Tablet PO (10:27)
[2019-04-13] MEDS: Lisinopril 10 MG Tablet PO (10:27)
[2019-04-13] MEDS: Clopidogrel Bisulfate 75 MG Tablet PO (10:27)
[2019-04-13] MEDS: Metoprolol Tartrate 100 MG Tablet PO ×2 (10:27→21:50)
[2019-04-13] MEDS: LINAGLIPTIN 5 MG TABLET PO (10:27)
[2019-04-13] MEDS: Pioglitazone Hydrochloride 45 MG Tablet PO (10:28)
[2019-04-13] MEDS: Glucerna Shake 120 ML LIQUID PO ×4 (10:28→21:52)
[2019-04-13] MEDS: APIXABAN 5 MG TABLET PO ×2 (10:28→21:50)
[2019-04-13] MEDS: Gabapentin 800 MG Tablet PO ×2 (10:29→21:50)
[2019-04-13] MEDS: Metoprolol Tartrate 5 MG/5 ML Vial IV (11:39)
[2019-04-13] MEDS: Insulin Lispro 100 UNIT/ML INSULN.PEN SC ×2 (11:43→16:13)
[2019-04-13 11:51] LABS: Bedside Glucose 204 mg/dL (70-110)
--- NOTE | 2019-04-13 12:55 | PCM.CONS.C ---
Problem List (1) Syncope Status: Acute (2) Elevated troponin Status: Acute (3) Atrial fibrillation with rapid ventricular response Status: Acute (4) CAD (coronary artery disease), [place] coronary artery Status: Chronic (5) S/P PTCA (percutaneous transluminal coronary angioplasty) Status: Chronic (6) Hyperlipidemia Status: Chronic (7) HTN (hypertension) Status: Chronic (8) Type 2 diabetes mellitus Status: Chronic (9) Diarrhea Status: Chronic Reason for Consult Date of Consultation: 04/13/19 History of Present Illness: The patient is a 58 year old white male with a past medical history of syncope, atrial fibrillation with RVR status post medical therapy, DC cardioversion therapy, and atrial fibrillation ablation, CAD status post PCI, hyperlipidemia, and hypertension, superimposed upon diabetes mellitus, who presents for evaluation of recurrent syncope and findings of atrial fibrillation with RVR and indeterminate troponin I levels. The patient lives and he is followed by both interventional cardiology and electrophysiology in the [place], [place] area. He has undergone his cardiovascular studies there. He states he was camping locally. He has not been feeling well recently. He has had episodes of nausea and loose bowel movements. He may not have been taking adequate fluid intake. He has been feeling somewhat more short of breath recently. Yesterday he had 2 episodes while camping of syncope. These episodes were witnessed by his where he would drop down and get back up or 1 where he was sitting down and apparently lost consciousness-briefly. He does not recall having any chest discomfort or acute shortness of breath/dyspnea. There is been no report of ongoing orthopnea or PND or worsening peripheral pitting edema. He states he has never felt his heart rate with respect to his atrial dysrhythmia. However he wonders if his rhythm changed recently because of some shortness of breath and dyspnea prior to this weekends camping outing. He was brought to the hospital for further evaluation. He was found to be in atrial fibrillation with RVR. He was also noted to have indeterminate troponin I levels which was subsequently decreased. His ECG demonstrated atrial fibrillation with RVR. 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 His chest x-ray demonstrated no acute changes per radiology report. He is also undergone evaluation for possible viral illness and was diagnosed with a parainfluenza. He has previous cardiovascular records from outside institutions are unavailable for review. [] Past Medical History Allergies/Adverse Reactions: Allergies No Known Allergies Allergy (Verified 04/13/19 01:08) Home Medications: Ambulatory Orders Medication Instructions Recorded Apixaban [Eliquis] 5 mg PO BID 04/13/19 Clopidogrel Bisulfate [Plavix] 75 mg PO DAILY 04/13/19 Ertugliflozin Pidolate [Steglatro] 5 mg PO DAILY 04/13/19 Etanercept [Enbrel] 50 mg SQ QWEEK 04/13/19 Gabapentin 800 mg PO BID 04/13/19 Glimepiride [Amaryl] 4 mg PO BID 04/13/19 Lisinopril [Prinivil] 10 mg PO DAILY 04/13/19 Magnesium Oxide 400 400 mg PO DAILY 04/13/19 Metoprolol Tartrate [Lopressor] 100 mg PO BID 04/13/19 Pantoprazole Sodium [Protonix] 40 mg PO DAILY 04/13/19 Pioglitazone [Actos] 45 mg PO DAILY 04/13/19 Simvastatin 20 mg PO DAILY 04/13/19 Sitagliptin Phosphate [Januvia] 50 mg PO DAILY 04/13/19 traZODone [Desyrel] 50 mg PO QHS 04/13/19 Past Medical History (Chronic Problems): Chronic Problems CAD (coronary artery disease), [place] coronary artery (Chronic) HTN (hypertension) (Chronic) Hyperlipidemia (Chronic) Type 2 diabetes mellitus (Chronic) Ankylosing spondylitis (Chronic) Chronic atrial fibrillation (Chronic) S/P PTCA (percutaneous transluminal coronary angioplasty) (Chronic) Diarrhea (Chronic) Surgical History: angioplasty - coronary stent, appendectomy, - - cardiac ablation - *Family History Maternal History Items: Diabetes Paternal History Items: Cancer - His father had lung cancer. Patient reported his father worked in [employer] Lives: Spouse/ Significant Other Smoking Status: Never smoker Tobacco Use: Non-smoker Alcohol: Occasional Drugs: None Review of Systems - Review of Systems General: Denies: Fever, Night Sweats, Fatigue Cardiovascular: Reports: Shortness of Breath, Syncope. Denies: Chest Discomfort, Orthopnea, PND, Peripheral Edema, Palpitations, Lightheadedness, Dizziness Respiratory: Reports: Shortness of Breath. Denies: Cough, Sputum Production, Hemoptysis Gastrointestinal: Reports: Diarrhea. Denies: Hematemesis, Hematochezia, Melena Genitourinary: Denies: Dysuria, Hematuria Subjectve: This is a 58-year-old white male who appears to be resting comfortably at the moment in no acute distress. Objective: Vital Signs Temp Pulse Resp BP Pulse Ox 98.3 F 98 18 130/69 H 98 04/13/19 12:06 04/13/19 12:06 04/13/19 12:06 04/13/19 12:06 04/13/19 12:06 Oxygen Delivery Method Room Air Weight: 242 lb 15.19 oz Body Mass Index (BMI) 33.8 Orthostatic Vital Signs Start: 04/13/19 08:07 Freq: q24h Status: Active Protocol: Activity Type Activity Date Activity User E-Sign Co-Sign Detail Recorded Client Recorded Date Recorded By Document 04/13/19 08:08 SYLVIA [id number] 04/13/19 08:09 SYLVIA 04/13/19 08:08 Orthostatic Vitals Standing -Blood Pressure (90/60-120/80) 147/89 H -Extremity Use Right Arm -Pulse Rate (60-100) 100 Sitting -Blood Pressure (90/60-120/80) 138/79 H -Extremity Use Right Arm -Pulse Rate (60-100) 89 Lying -Blood Pressure (90/60-120/80) 135/78 H -Extremity Use Right Arm -Pulse Rate (60-100) 79 Intake and Output for Last 24 Hours 04/11/19 04/12/19 04/13/19 23:59 23:59 23:59 Intake Total 1053.4 / 1053.4 Output Total 200 / 200 Balance 853.4 / 853.4 General: Awake, Alert, Oriented x 3, Cooperative, No Acute Distress HEENT: Atraumatic, Normocephalic, PERRL, EOMI, Sclera Non Icteric Oral: Moist Mucosa Neck: Supple, Good ROM, No JVD Lungs: Clear to auscultation Cardiovascular: Irregular Rhythm, Normal S1, Normal S2 - Diminished heart tones Abdomen: Bowel Sounds Present, Soft, Non Tender Extremities: No Cyanosis, No Clubbing, No edema Neurological: No Focal Motor or Sensory Deficit Psych/Mental Status: Appropriate 04/13/19 01:10: WBC 8.4, RBC 5.73, Hgb 14.2, Hct 44.3, MCV 77.3 L, MCH 24.8 L, MCHC 32.1, RDW 17.0 H, RDW Differential 47.6 H, Plt Count 239, MPV 10.5, Immature Gran % (Auto) 0.200, Neut % (Auto) 69.5, Lymph % (Auto) 17.2 L, [place] % (Auto) 12.4 H, Eos % (Auto) 0.5, Baso % (Auto) 0.2, Absolute Neuts (auto) 5.8, Total Counted Not Reportable 04/13/19 01:10: Sodium 135 L, Potassium 3.3 L, Chloride 106, Carbon Dioxide 21.0, Anion Gap 8, BUN 19 H, Creatinine 1.02, Est GFR (MDRD) Af Amer 96, Est GFR (MDRD) Non-Af 79, BUN/Creatinine Ratio 18.6, Glucose 160 H, Calcium 8.6, Troponin I 0.349 H 04/13/19 04:26: Troponin I 0.269 H 04/13/19 07:35: Magnesium Cancelled, Triglycerides Cancelled, Cholesterol Cancelled, LDL Cholesterol Cancelled, VLDL Cholesterol Cancelled, HDL Cholesterol Cancelled 04/13/19 07:35: Magnesium 1.9, Troponin I 0.222 H, Triglycerides 94, Cholesterol 86, LDL Cholesterol 38, VLDL Cholesterol 19, HDL Cholesterol 29 L Rhythm: Atrial fibrillation EKG: Atrial fibrillation ECHO: Pending CXR: As noted above Assessment/Plan 1. Syncope The patient has a history of syncope. He is now had recurrent syncope. In the past he states his syncope was related to his atrial fibrillation with rapid ventricular response. At the present time the patient has been found to have recurrent atrial fibrillation with rapid ventricular response. This may be a contributing factor to his syncope. The patient's troponin I levels were indeterminant upon arrival and it subsequently declined. It is unclear whether this represents an acute coronary syndrome event or may be a type II event secondary to supply demand mismatch based upon his atrial dysrhythmia with rapid ventricular response superimposed upon his underlying cardiovascular disease process. There may also be a concern with his diagnosis of viral illness and loose bowel movements/diarrhea as whether or not he had any associated decreased intravascular volume/dehydration it would be contributing to such a finding. He is being monitored. He is being evaluated for his underlying cardiovascular concerns as well as noncardiac concerns. From a cardiac standpoint he is undergoing further evaluation with appropriate laboratory follow-up, cardiac rhythm follow-up, and an echocardiogram and attempt to assess his left ventricular wall motion and systolic function. He may need additional noninvasive or invasive cardiovascular studies. 2. Abnormal troponin I level The patient did have indeterminate troponin I levels upon arrival. They have decreased. Again it is unclear whether this represents a primary acute coronary syndrome event versus being secondary to a type II event from supply demand mismatch from his atrial dysrhythmia with RVR superimposed upon his underlying CAD process. The patient states he underwent diagnostic cardiac catheterization approximately year ago prior to his EPS/RFA. At that time he was told that his coronary artery/stents were patent and he did not require additional revascularization therapy. He will continue to be followed and evaluated as noted above. He may need additional noninvasive or invasive studies of his coronary anatomy/physiology depending upon his clinical course. He will continue medical therapy as deemed appropriate. 3. Atrial fibrillation with RVR To the best of his knowledge he has been in sinus rhythm since his ablation. He states he has been on medical management including anticoagulant therapy. He does not believe he took his anticoagulant therapy yesterday based upon his illness. At the present time he is continued to be monitored. He is continuing rate limiting therapy. He will continue anticoagulant therapy. He may need an attempt at antiarrhythmic therapy to assist with rate control and/or attempt to regain sinus rhythm. He may eventually need further evaluation and care with repeat attempts at synchronized biphasic DC cardioversion to regain sinus rhythm. He states he was also told by his dermatology specialist that he may need a repeat EP study as well. 4. CAD status post PCI The details of his CAD history are unknown. However he states he did undergo diagnostic cardiac catheterization approximately 1 year ago prior to his EPS/RFA. He was told at that time he did not require additional revascularization therapy. At the moment his troponin I levels have trended down. He will continue to be followed as noted above. An echocardiogram is been requested and attempt to evaluate his left ventricular wall motion and systolic function. He will continue medical therapy as deemed appropriate. Depending upon his clinical course he may need additional noninvasive or invasive studies of his CAD status. 5. Hyperlipidemia He will continue risk factor evaluation and care. 6. Hypertension He will continue medical management with adjustment as needed. 7. Diabetes mellitus He will continue evaluation care per internal medicine. 8. Parainfluenza virus He will continue evaluation care per internal medicine. Overall, the patient will continue cardiovascular evaluation care as described above. 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 This has been discussed with the patient and his spouse. They were agreeable to this approach and stated that it did make sense to them to be closer to where they live and the physicians who know them and the hospital where he has had his procedures performed in the past. He will keep his options open. Comment: The above was discussed with the patient, his spouse, and Dr. Espinosa. This note was generated using a voice recognition system and there may be incorrect words, spelling or punctuation that were not noted when reviewing the office note prior to saving.
--- NOTE | 2019-04-13 15:25 | CM.UR ---
RN CM FOUNDER CHAIRMAN AND CHIEF CREATIVE OFFICER CM to room to meet with patient for initial transition planning/care coordination assessment. RN TOD introduced self and role at [facility]. Pt voices understanding and consents to assessment at this time. Pt resting in bed in no distress at this time. Joviance at bedside. Pt is A/O at this time and answers all questions appropriately. Care providers, pharmacy, and demographics verified at this time. PCP: Phoenix Vargas Specialists: [facility] Pharmacy: [facility] Insurance: [employer] Prescription Benefit: [employer] --has no copay. Living Will/HPOA: None. Declines additional information at this time. LNOK: Son, Rivera Bishop. Maida Quigley. Living Arrangements: Has a ranch home in [place]. 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 ADLs: Independent. Transportation: Self DME: BP cuff, pulse ox. HHC/SNF: None PLAN: Home to [facility], No needs anticipated. Torsten Salgado RN, CCM.
[2019-04-13 16:21] LABS: Bedside Glucose 177 mg/dL (70-110)
[2019-04-13] MEDS: Acetaminophen 325 MG Tablet 650 MG PO (19:53)
[2019-04-13] MEDS: Atorvastatin Calcium 10 MG Tablet PO (21:51)
[2019-04-13] MEDS: traZODone 100 MG Tablet PO (21:51)
[2019-04-13 22:06] LABS: Bedside Glucose 114 mg/dL (70-110)
[2019-04-13 22:31] LABS: Bedside Glucose 141 mg/dL (70-110)
[2019-04-14] VITALS (7 sets, daily range): BP systolic 108–110; BP diastolic 55–64; PULSE 90–117; RESP 16–18; TEMP 36.8–37; O2SAT 96–97
[2019-04-14 04:06] LABS: Anion Gap 7 (5-15); BUN 20 mg/dL (7-18); BUN/Creat Ratio 20.2 RATIO (10-20); Calcium,Total 8.4 mg/dL (8.5-10.1); Chloride 110 mmol/L (98-107); Creatinine, Serum 0.99 mg/dL (0.70-1.30); EST Glomerular Filtration Rate 82 mL/min (>60); Est Glom Filt Rate - Afr Amer 99 mL/min (>60); Estimated Creatinine Clearance 85.57 ml/min; Glucose 113 mg/dL (74-106); Potassium 3.8 mmol/L (3.5-5.1); Sodium Level 142 mmol/L (136-145)
[2019-04-14 06:45] LABS: Bedside Glucose 131 mg/dL (70-110)
[2019-04-14] MEDS: APIXABAN 5 MG TABLET PO (08:34)
[2019-04-14] MEDS: Pantoprazole Sodium 40 MG Tablet PO (08:34)
[2019-04-14] MEDS: Gabapentin 800 MG Tablet PO (08:34)
[2019-04-14] MEDS: Clopidogrel Bisulfate 75 MG Tablet PO (08:34)
[2019-04-14] MEDS: Lisinopril 10 MG Tablet PO (08:34)
[2019-04-14] MEDS: Metoprolol Tartrate 100 MG Tablet PO (08:34)
[2019-04-14] MEDS: LINAGLIPTIN 5 MG TABLET PO (08:34)
[2019-04-14] MEDS: Glimepiride 4 MG Tablet PO (08:34)
[2019-04-14] MEDS: Glucerna Shake 120 ML LIQUID PO (08:35)
[2019-04-14] MEDS: Pioglitazone Hydrochloride 45 MG Tablet PO (08:36)
--- NOTE | 2019-04-14 11:10 | DCINST_ITS ---
- Discharge Diagnoses Current Active Problems: Current Active and Chronic Problems Chest pain (Acute) Elevated troponin (Acute) Dehydration (Acute) Syncope (Acute) Atrial fibrillation with rapid ventricular response (Acute) Syncope and collapse (Acute) S/P PTCA (percutaneous transluminal coronary angioplasty) (Chronic) Diarrhea (Chronic) You will use the following diet at home:: Calorie/Carbohydrate Controlled (specify 1200, 1400, etc) - 1800 ADA diet, Cardiac Your food should be the consistency of: Regular Discharge Activity: May Not Drive - for about 1 week Call your doctor if you observe: Fever of 101 or Higher, Inability to urinate, Inability to have a bowel movement, Shortness of breath, Dizziness, Fainting spells, Swelling in the ankles, Chest pain, Prolonged hiccoughing, Increased palpitations (irregular heartbeat), Uncontrolled pain Additional Instructions: Follow-up clinical data associate, Dr. Painter and shipboard intelligence analyst Dr. Dyer in next 1-3 days in [facility] Allergies/Adverse Reactions: Allergies No Known Allergies Allergy (Verified 04/13/19 01:08) Medications to take at Discharge Apixaban [Eliquis] 5 mg PO BID 04/13/19 Clopidogrel Bisulfate [Plavix] 75 mg PO DAILY 04/13/19 Ertugliflozin Pidolate [Steglatro] 5 mg PO DAILY 04/13/19 Etanercept [Enbrel] 50 mg SQ QWEEK 04/13/19 Gabapentin 800 mg PO BID 04/13/19 Glimepiride [Amaryl] 4 mg PO BID 04/13/19 Lisinopril [Prinivil] 10 mg PO DAILY 04/13/19 Magnesium Oxide 400 400 mg PO DAILY 04/13/19 Metoprolol Tartrate [Lopressor] 100 mg PO BID 04/13/19 Pantoprazole Sodium [Protonix] 40 mg PO DAILY 04/13/19 Pioglitazone [Actos] 45 mg PO DAILY 04/13/19 Simvastatin 20 mg PO DAILY 04/13/19 Sitagliptin Phosphate [Januvia] 50 mg PO DAILY 04/13/19 traZODone [Desyrel] 50 mg PO QHS 04/13/19 Diltiazem CD [Cardizem CD] 120 mg PO Q12 #30 cap 04/14/19 Guaifenesin [Mucinex] 1,200 mg PO BID tablet 04/14/19 The following prescriptions were given: Diltiazem CD [Cardizem CD] 120 mg PO Q12 #30 cap Prescription Printed Primary Care Physician: Hunter Doctor,Out of [Primary Care Provider] - Please follow up with your Primary Care Physician in: in 1-2 week Test Results: Test results from this visit will be discussed in further detail at your follow- up appointment, if applicable.
--- NOTE | 2019-04-14 11:14 | PCM.DC.SUM ---
Discharge Date and Diagnosis Date of Admission: 04/13/19 Date of Discharge: 04/14/19 - Primary Discharge Diagnosis Active and Suspected Problems Chest pain (Acute) Elevated troponin (Acute) Dehydration (Acute) Syncope (Acute) Atrial fibrillation with rapid ventricular response (Acute) Syncope and collapse (Acute) - Secondary Discharge Diagnosis Chronic Problems CAD (coronary artery disease), teller coronary artery (Chronic) HTN (hypertension) (Chronic) Hyperlipidemia (Chronic) Type 2 diabetes mellitus (Chronic) Ankylosing spondylitis (Chronic) Chronic atrial fibrillation (Chronic) S/P PTCA (percutaneous transluminal coronary angioplasty) (Chronic) Diarrhea (Chronic) Hospital Course and Treatment Summary of Care Provided: [] This is a 58-year-old gentleman who is being admitted with 2 episodes of syncope along with A. fib with RVR and chest pressure. The patient has history of coronary artery disease with 8 stents, first one 10 years ago and ankylosing spondylitis on Enbrel. He had first a stent when found abnormal on the stress test. He also found A. fib with RVR last year and letter on Holter monitor on ventricular fibrillation and subsequently had atrial ablation by Dr. Painter, office executive in [facility]. His cardiac care is mainly in the [facility], the weight calculator Dr. Dyer. 1. Syncope with collapse possible related to A. fib with RVR/parainfluenza bronchitis: Orthostatic blood pressure does not show change in blood pressure but heart rate went-up from 79 on lying position, 89 on sitting and 100 on standing. Patient is on Eliquis. Echo was done and reported as EF 55%. LA mildly enlarged. RVSP 25 Hg. Trivial TR. In A. fib. Medical record could not be obtained because of the weekend. Patient wants to go home. Advised to follow-up EP Dr. Painter next 1 to [address] supervisor [address] Dyer in 1 to 2 weeks. 2. Chest pain with elevated troponin possible due to demand ischemia/A. fib with RVR with history of coronary artery disease status post 8 stents: Patient had mildly elevated heart rate today with 100 to 110/min which goes to 120/min on walking or standing.. Cardizem CD 120 mg twice daily added. On home medication 100 mg metoprolol twice daily. Serial troponin shows mild elevation, from 0.349, 0.27 and last one 0.22, decreasing trend. Cardiac medications lisinopril, simvastatin continued. 3. Arrhythmia: A. fib with RVR: Patient still gets intermittent tachycardia. TSH 1.59. Magnesium 1.9. Repeat K3.8. 4. Parainfluenza 3 viral bronchitis: Symptomatic treatment with hydration. Patient was advised to take Mucinex 1200 mg twice daily for 5 more days. 5. Diabetes mellitus type 2: Blood glucose is controlled. Home oral medications continued. Blood sugars are controlled. 6. Ankylosing spondylitis Etanercept continued 7. Anxiety depression, insomnia and GERD: Home medications trazodone continued. On Protonix. DVT prophylaxis: On Eliquis Discharge medication reconciliation done. Discharge follow-up instructions completed. Discharge process discussed with the patient and all questions were answered to patient's satisfaction.. Total time spent, exact 35 minutes on discharge meds reconciliation, examination, review of imaging and blood test and discussion with the patient on follow-up instructions. Microbiology Past 72 Hours 04/13/19 05:15 Mucosa - Nose Respiratory Panel (PCR) - Final Parainfluenza 3 Subjective: Seen and examined. Patient does not have dizziness, palpitation, shortness of breath or chest pain. Telemetry reviewed. Shows sinus rhythm with multiple PVCs. Heart rate about 104 to 110/min. - Physical Exam General: Alert, Oriented x3, Cooperative HEENT: Atraumatic, PERRLA, EOMI, Normocephalic Neck: Supple, No JVD, Negative Carotid Bruits Lungs: Clear to auscultation, No rhonchi, No wheeze, No rales, Diminished - Air entry is diminished in bilateral lung bases. Cardiovascular: Regular rate, Normal S1, Normal S2, No murmurs, Irregular Rate - With multiple PVCs. Sinus rhythm Abdomen: Bowel Sounds Present, Soft, Non Tender, Non-Distended Extremities: Capillary Refill Less than 3 Seconds, Edema Skin: No rashes, No breakdown Musculoskeletal: No Tenderness to Palpation of Joints or Extremities Neurological: Cranial nerves II-XII grossly intact, Deep Tendon Reflexes 2+/4 and Symmetrical, Neuro grossly intact Psych/Mental Status: Normal Affect, Appropriate Vital Signs Temp Pulse Resp BP Pulse Ox 98.3 F 108 H 16 110/64 97 04/14/19 09:30 04/14/19 09:30 04/14/19 09:30 04/14/19 09:30 04/14/19 09:30 Oxygen Delivery Method Room Air Weight: 242 lb 15.19 oz Body Mass Index (BMI) 33.8 Orthostatic Vital Signs Start: 04/13/19 08:07 Freq: q24h Status: Active Protocol: Activity Type Activity Date Activity User E-Sign Co-Sign Detail Recorded Client Recorded Date Recorded By Document 04/13/19 08:[address] [facility] [id number] 04/13/19 08:09 SYLVIA 04/13/19 08:08 Orthostatic Vitals Standing -Blood Pressure (90/60-120/80) 147/89 H -Extremity Use Right Arm -Pulse Rate (60-100) 100 Sitting -Blood Pressure (90/60-120/80) 138/79 H -Extremity Use Right Arm -Pulse Rate (60-100) 89 Lying -Blood Pressure (90/60-120/80) 135/78 H -Extremity Use Right Arm -Pulse Rate (60-100) 79 Intake and Output for Last 24 Hours 04/12/19 04/13/19 04/14/19 23:59 23:59 23:59 Intake Total 2333.4 / 2333.4 240 / 240 Output Total 200 / 200 Balance 2133.4 / 2133.4 240 / 240 Microbiology Past 72 Hours 04/13/19 08:00 C. difficile DNA Amplification - Final Stool 04/13/19 05:15 Respiratory Panel (PCR) - Final Mucosa - Nose Parainfluenza 3 Laboratory Tests Past 24 Hrs 04/14/19 04/14/19 03:32 03:32 Sodium 142 Potassium 3.8 Chloride 110 H Carbon Dioxide 25.0 Anion Gap 7 BUN 20 H Creatinine 0.99 Estim Creat Clear Calc 85.57 Est GFR (MDRD) Af Amer 99 Est GFR (MDRD) Non-Af 82 BUN/Creatinine Ratio 20.2 H Glucose 113 H Calcium 8.4 L Magnesium Pending POC Glucose 04/14/19 04/13/19 04/13/19 06:30 21:55 16:11 POC Glucose 131 H 141 H 177 H 04/13/19 04/13/19 11:41 06:51 POC Glucose 204 H 114 H Discharge Activity: May Not Drive - for about 1 week Call your doctor if you observe: Fever of 101 or Higher, Inability to urinate, Inability to have a bowel movement, Shortness of breath, Dizziness, Fainting spells, Swelling in the ankles, Chest pain, Prolonged hiccoughing, Increased palpitations (irregular heartbeat), Uncontrolled pain Home Medications: Medications to take at Discharge Apixaban [Eliquis] 5 mg PO BID 04/13/19 Clopidogrel Bisulfate [Plavix] 75 mg PO DAILY 04/13/19 Ertugliflozin Pidolate [Steglatro] 5 mg PO DAILY 04/13/19 Etanercept [Enbrel] 50 mg SQ QWEEK 04/13/19 Gabapentin 800 mg PO BID 04/13/19 Glimepiride [Amaryl] 4 mg PO BID 04/13/19 Lisinopril [Prinivil] 10 mg PO DAILY 04/13/19 Magnesium Oxide 400 400 mg PO DAILY 04/13/19 Metoprolol Tartrate [Lopressor] 100 mg PO BID 04/13/19 Pantoprazole Sodium [Protonix] 40 mg PO DAILY 04/13/19 Pioglitazone [Actos] 45 mg PO DAILY 04/13/19 Simvastatin 20 mg PO DAILY 04/13/19 Sitagliptin Phosphate [Januvia] 50 mg PO DAILY 04/13/19 traZODone [Desyrel] 50 mg PO QHS 04/13/19 Diltiazem CD [Cardizem CD] 120 mg PO Q12 #30 cap 04/14/19 Guaifenesin [Mucinex] 1,200 mg PO BID tab 04/14/19 Following Prescrptions Were Given to Patient: Diltiazem CD [Cardizem CD] 120 mg PO Q12 #30 cap Prescription Printed Primary Care Physician: Hunter De La Torre,Out of [Primary Care Provider] - Please follow up with your Primary Care Physician in: in 1-2 week Medical Necessity - Tobacco Use Smoking Status: Never smoker Tobacco Use: Non-smoker Meaningful Use Info Meaningful Use Diagnoses (Choose all that apply): None applicable Code Visit Inpatient E&M: 05525 Disch Hosp
[2019-04-14 11:34] LABS: Magnesium 1.7 mg/dL (1.6-2.6)
[2019-04-14] MEDS: dilTIAZem CD 120 MG Capsule PO (11:53)
[2019-04-14] MEDS: Insulin Lispro 100 UNIT/ML INSULN.PEN SC (11:54)
[2019-04-14 12:00] LABS: Bedside Glucose 198 mg/dL (70-110)
[2019-04-14] MEDS: guaiFENesin 1,200 MG Tablet 1200 MG PO (12:36)
--- NOTE | 2019-04-14 13:26 | PCM.PN.CARD ---
Subjectve: The patient looks better and states he feels better today. He denies any ongoing chest discomfort or difficulty breathing. He has not demonstrated any obvious palpitations to the best of his knowledge. He has had no sensation of dizziness/lightheadedness nor has he had any obvious recurrent near syncope or syncope. He has been up and ambulating without difficulty. Objective: Vital Signs Temp Pulse Resp BP Pulse Ox 98.3 F 108 H 16 110/64 97 04/14/19 09:30 04/14/19 09:30 04/14/19 09:30 04/14/19 09:30 04/14/19 09:30 Oxygen Delivery Method Room Air Weight: 242 lb 15.19 oz Body Mass Index (BMI) 33.8 Orthostatic Vital Signs Start: 04/13/19 08:07 Freq: q24h Status: Active Protocol: Activity Type Activity Date Activity User E-Sign Co-Sign Detail Recorded Client Recorded Date Recorded By Document 04/13/19 08:08 [facility] [id number] 04/13/19 08:09 SYLVIA 04/13/19 08:08 Orthostatic Vitals Standing -Blood Pressure (90/60-120/80 mm Hg) 147/89 H -Extremity Use Right Arm -Pulse Rate (60-100 beats/min) 100 Sitting -Blood Pressure (90/60-120/80 mm Hg) 138/79 H -Extremity Use Right Arm -Pulse Rate (60-100 beats/min) 89 Lying -Blood Pressure (90/60-120/80 mm Hg) 135/78 H -Extremity Use Right Arm -Pulse Rate (60-100 beats/min) 79 Intake and Output for Last 24 Hours 04/12/19 04/13/19 04/14/19 23:59 23:59 23:59 Intake Total 2333.4 / 2333.4 720 / 720 Output Total 200 / 200 Balance 2133.4 / 2133.4 720 / 720 General: Awake, Alert, Oriented x 3, Cooperative, No Acute Distress HEENT: Atraumatic, Normocephalic, PERRL, EOMI, Sclera Non Icteric Oral: Moist Mucosa Neck: Supple, Good ROM, No JVD Lungs: Clear to auscultation Cardiovascular: Irregular Rhythm, Normal S1, Normal S2 Abdomen: Bowel Sounds Present, Soft, Non Tender Extremities: No Cyanosis, No Clubbing, No edema Neurological: No Focal Motor or Sensory Deficit Psych/Mental Status: Appropriate 04/14/19 03:32: Sodium 142, Potassium 3.8, Chloride 110 H, Carbon Dioxide 25.0, Anion Gap 7, BUN 20 H, Creatinine 0.99, Est GFR (MDRD) Af Amer 99, Est GFR (MDRD) Non-Af 82, BUN/Creatinine Ratio 20.2 H, Glucose 113 H, Calcium 8.4 L 04/14/19 03:32: Magnesium 1.7 Rhythm: Atrial fibrillation Echocardiogram: Interpretation Summary The study was technically difficult. Contrast injection was performed. Left ventricular systolic function is normal. The estimated ejection fraction is 55 %. The left atrium is mildly enlarged. Trivial mitral valve insufficiency. Trivial tricuspid valve insufficiency. Trivial pulmonic valve insufficiency. Right ventricular systolic pressure estimated to be 25 mmHg. Unable to assess diastolic dysfunction. Medical Necessity - Tobacco Use Smoking Status: Never smoker Tobacco Use: Non-smoker Assessment/Plan 1. Syncope The patient has a history of syncope. He is now had recurrent syncope. In the past he states his syncope was related to his atrial fibrillation with rapid ventricular response. At the present time the patient has been found to have recurrent atrial fibrillation with rapid ventricular response. This may be a contributing factor to his syncope. The patient's troponin I levels were indeterminant upon arrival and it subsequently declined. It is unclear whether this represents an acute coronary syndrome event or may be a type II event secondary to supply demand mismatch based upon his atrial dysrhythmia with rapid ventricular response superimposed upon his underlying cardiovascular disease process. There may also be a concern with his diagnosis of viral illness and loose bowel movements/diarrhea as whether or not he had any associated decreased intravascular volume/dehydration it would be contributing to such a finding. He is being monitored. He is being evaluated for his underlying cardiovascular concerns as well as noncardiac concerns. He has continued to be monitored. He is remained in atrial fibrillation. He is cardiac enzymes have diminished. His echocardiogram is as noted above. At the present time he will continue rate control therapy. He states he has been challenging in the past with his atrial dysrhythmia and again has been told on more than one occasion he may require additional medical therapy and/or consideration for repeat EPS/RFA. The present time he is continuing combined rate limiting therapy. He is continuing anticoagulant therapy. 2. Abnormal troponin I level The patient did have indeterminate troponin I levels upon arrival. They have decreased. Again it is unclear whether this represents a primary acute coronary syndrome event versus being secondary to a type II event from supply demand mismatch from his atrial dysrhythmia with RVR superimposed upon his underlying CAD process. The patient states he underwent diagnostic cardiac catheterization approximately year ago prior to his EPS/RFA. At that time he was told that his coronary artery/stents were patent and he did not require additional revascularization therapy. His echocardiogram does not appear to suggest ongoing left ventricular regional wall motion abnormalities are diminished LV systolic function. His clinical scenario maybe compatible with a type II event secondary to his atrial dysrhythmia with rapid ventricular response. He will continue medical therapy as deemed appropriate. 3. Atrial fibrillation with RVR To the best of his knowledge he has been in sinus rhythm since his ablation. He states he has been on medical management including anticoagulant therapy. He does not believe he took his anticoagulant therapy yesterday based upon his illness. At the present time he is continued to be monitored. He is continuing rate limiting therapy. He will continue anticoagulant therapy. He has been placed on dual rate limiting medications to assist with control of his atrial rate. He continues with his anticoagulant therapy. 4. CAD status post PCI The details of his CAD history are unknown. However he states he did undergo diagnostic cardiac catheterization approximately 1 year ago prior to his EPS/RFA. He was told at that time he did not require additional revascularization therapy. At the moment his troponin I levels have trended down. He will continue to be followed as noted above. Again, his echocardiogram does not appear to suggest underlying left ventricular regional wall motion abnormalities are overall diminished LV systolic function. He will continue medical therapy as deemed appropriate. Depending upon his clinical course he may need additional noninvasive or invasive studies of his CAD status. 5. Hyperlipidemia He will continue risk factor evaluation and care. 6. Hypertension He will continue medical management with adjustment as needed. 7. Diabetes mellitus He will continue evaluation care per internal medicine. 8. Parainfluenza virus He will continue evaluation care per internal medicine. Overall he does look and feel better today. He wants to continue medical management. He would like to return home and follow-up with his primary cardiology team. If he does well on medical management with respect to his cardiac rate control, noting that at the present time the consensus is that his cardiac enzymes may represent a type II event as opposed to a primary type I acute coronary syndrome event, that he does not have ventricular regional wall motion abnormalities are diminished LV systolic function, and he is overall improved, hopefully he can continue medical therapy and be considered for release home with follow-up with his primary cardiology team. Comment: The above was discussed with the patient and Dr. Espinosa. This note was generated using a voice recognition system and there may be incorrect words, spelling or punctuation that were not noted when reviewing the office note prior to saving.
== END 2019-04-14 14:05 | disposition home or self-care (01) | DRG 201 ==
LOC: ED 02:19 → PCU 04:36
PROVIDERS: Admitting Provider Hospitalist; Emergency Provider Emergency Medicine; Referring Provider Hospitalist; Visit Provider Internal Medicine
DX: I48.2 Chronic atrial fibrillation (principal); R55 Syncope and collapse; J20.4 Acute bronchitis due to parainfluenza virus; R79.89 Other specified abnormal findings of blood chemistry; E87.6 Hypokalemia; E87.1 Hypo-osmolality and hyponatremia; R07.9 Chest pain, unspecified; E86.0 Dehydration; E11.9 Type 2 diabetes mellitus without complications; M45.9 Ankylosing spondylitis of unspecified sites in spine; E78.5 Hyperlipidemia, unspecified; I25.10 Atherosclerotic heart disease of native coronary artery without angina pectoris; I24.8 Other forms of acute ischemic heart disease; Z79.01 Long term (current) use of anticoagulants; Z79.84 Long term (current) use of oral hypoglycemic drugs; Z95.5 Presence of coronary angioplasty implant and graft; K21.9 Gastro-esophageal reflux disease without esophagitis; G47.00 Insomnia, unspecified; F41.8 Other specified anxiety disorders; R19.7 Diarrhea, unspecified
CPT/HCPCS: 36415; 71045; 80048; 80061; 82962; 83735; 84443; 84484; 85025; 87493; 87506; 87633; 93005; 93306; 97802; 99285; J7030; Q9957; A4216; C8929